=== PATIENT | female | born 1960 | race Caucasian/White ===

== ENCOUNTER 2019-01-23 11:25 | Emergency (ER) | payer SELFPAY ==
[2019-01-23 12:48] LABS: BASOPHILS % (AUTO) 1 % (0-3); EOSINOPHILS % (AUTO) 1 % (0-9); HEMATOCRIT 36 % (35-47); LYMPHOCYTES % (AUTO) 10.7 % (10-50); MEAN CORPUSCULAR HEMOGLOBIN 28.4 pg (27.0-32.0); MEAN CORPUSCULAR HGB CONC 33.2 gm/dl (32.0-36.0); MEAN CORPUSCULAR VOLUME 85 fL (81-99); MONOCYTES % (AUTO) 10.5 % (0-12)
[2019-01-23 12:55] LABS: CALCIUM 8.7 mg/dl (8.5-10.1); CARBON DIOXIDE 27.2 mEq/L (21-32); CREATININE 1.51 mg/dl (0.60-1.00)
[2019-01-23 12:57] LABS: POTASSIUM 2.9 mMol/L (3.5-5.1)
[2019-01-23] MEDS: POTASSIUM CHLORIDE 10 MEQ TER PO ONE (13:12)
[2019-01-23] MEDS: METRONIDAZOLE 250 MG TAB PO ONE (13:12)
[2019-01-23] MEDS ORDERED: POTASSIUM CHLORIDE 10 MEQ TER ONE (13:20)
[2019-01-23] MEDS ORDERED: METRONIDAZOLE 250 MG TAB ONE (13:20)
[2019-01-23] MEDS: SODIUM CHLORIDE 0.9% 1000ML 1,000 ML IV ONE (13:25)
[2019-01-23 13:29] LABS: COLOR,URINE YELLOW
[2019-01-23 13:30] LABS: APPEARANCE,URINE CLOUDY; BILIRUBIN,URINE 2+ (NEGATIVE); GLUCOSE, URINE (UA) NEGATIVE (NEGATIVE); KETONES,URINE TRACE (NEGATIVE); NITRATE,URINE NEGATIVE (NEGATIVE); OCCULT BLOOD,URINE 2+ (NEG-TRACE)
[2019-01-23 13:31] LABS: BACTERIA 3+ (< 1+); CRYSTALS NEGATIVE (0-3 AVE/HPF); ICTOTEST,URINE NEGATIVE (NEGATIVE); LEUKOCYTE ESTERASE ,URINE 2+ (NEGATIVE); UROBILINOGEN,URINE NORMAL (0.2-1.0 EU); WBC,URINE 95-100 (0-5AV/HPF)
[2019-01-23 13:58] VITALS: TEMP 99.8
[2019-01-23 14:52] LABS: APPEARANCE,URINE CLOUDY; COLOR,URINE DARK YELLOW
[2019-01-23 14:53] LABS: GLUCOSE, URINE (UA) NEGATIVE (NEGATIVE); KETONES,URINE TRACE (NEGATIVE); NITRATE,URINE NEGATIVE (NEGATIVE); OCCULT BLOOD,URINE 1+ (NEG-TRACE)
[2019-01-23 14:54] LABS: BACTERIA 3+ (< 1+); BILIRUBIN,URINE 1+ (NEGATIVE); CRYSTALS NEGATIVE (0-3 AVE/HPF); ICTOTEST,URINE NEGATIVE (NEGATIVE); LEUKOCYTE ESTERASE ,URINE 2+ (NEGATIVE); UROBILINOGEN,URINE NORMAL (0.2-1.0 EU); WBC,URINE 75-80 (0-5AV/HPF)
[2019-01-23] MEDS: CIPROFLOXACIN HCL 500 MG TAB PO ONE (15:40)
[2019-01-23] MEDS: ACETAMINOPHEN 500 MG 500 MG TAB PO ONE (15:40)
[2019-01-23] MEDS ORDERED: CIPROFLOXACIN HCL 500 MG TAB PO ONE (15:41)
[2019-01-23] MEDS ORDERED: ACETAMINOPHEN 500 MG 500 MG TAB ONE (15:44)
[2019-01-23 16:39] VITALS: RESP 16
[2019-01-23 16:41] VITALS: BP 130/74; PULSE 78; O2SAT 94
== END 2019-01-23 16:29 | disposition home or self-care (01) | DRG 690 ==
LOC: ED 11:25
DX: N39.0 Urinary tract infection, site not specified (principal); E86.0 Dehydration; N76.0 Acute vaginitis; N94.10 Unspecified dyspareunia
CPT/HCPCS: 80048; 81001; 85025; 87077; 87088; 87186; 96365; 99283; 99285; A9270-GY

== ENCOUNTER 2019-01-25 15:45 | Inpatient (IN) | payer SELFPAY ==
[2019-01-25] MEDS ORDERED: PIPERACILLIN/TAZOBACT 3.375 GM 3.375 GM in SODIUM CHLORIDE 0.9% 100 ML 100 ML IV ONE (15:59)
[2019-01-25] MEDS ORDERED: SODIUM CHLORIDE 0.9% 1000ML 1,000 ML IV ONE (15:59)
[2019-01-25] MEDS ORDERED: PIPERACILLIN/TAZOBACT 3.375 GM PDS IV ONE ×2 (16:12→22:06)
[2019-01-25] MEDS ORDERED: SODIUM CHLORIDE 0.9% FLUSH 10 ML SOL IV PRN (17:39)
[2019-01-25] MEDS ORDERED: PIPERACILLIN/TAZOBACT 3.375 GM 3.375 GM in SODIUM CHLORIDE 0.9% 100 ML 100 ML IV SCH (18:00)
[2019-01-25] MEDS: DEXTROSE/SALINE 0.45/KCL 20MEQ 1,000 ML/1,000 ML SOL IV SCH (18:30)
[2019-01-25] MEDS: BUSPIRONE HCL 5 MG TAB PO SCH (21:21)
[2019-01-25] MEDS: VANCOMYCIN HCL 125 MG CAP PO SCH (21:22)
[2019-01-25] MEDS: ALLOPURINOL 100 MG TAB PO SCH (21:22)
[2019-01-25] MEDS ORDERED: SODIUM CHLORIDE 0.9% 100 ML 100 ML IV ONE (22:06)
[2019-01-25] MEDS: PIPERACILLIN/TAZOBACT 3.375 GM 3.375 GM in SODIUM CHLORIDE 0.9% 100 ML 100 ML IV SCH (22:21)
[2019-01-25] MEDS ORDERED: ACETAMINOPHEN 500 MG 500 MG TAB PO PRN (22:32)
[2019-01-25] MEDS ORDERED: ONDANSETRON 4 MG ODT BU PRN (22:33)
[2019-01-26] MEDS: IBUPROFEN 400 MG TAB PO PRN ×2 (02:40→14:18)
[2019-01-26] MEDS ORDERED: SODIUM CHLORIDE 0.9% 100 ML 100 ML IV ONE ×5 (03:47→19:46)
[2019-01-26] MEDS ORDERED: PIPERACILLIN/TAZOBACT 3.375 GM PDS IV ONE ×5 (03:47→19:44)
[2019-01-26] MEDS: DEXTROSE/SALINE 0.45/KCL 20MEQ 1,000 ML/1,000 ML SOL IV SCH (04:35)
[2019-01-26] MEDS: PIPERACILLIN/TAZOBACT 3.375 GM 3.375 GM in SODIUM CHLORIDE 0.9% 100 ML 100 ML IV SCH ×4 (04:35→22:02)
[2019-01-26 07:25] LABS: CALCIUM 7.7 mg/dl (8.5-10.1); CREATININE 0.91 mg/dl (0.60-1.00); POTASSIUM 3.1 mMol/L (3.5-5.1)
[2019-01-26 07:28] LABS: BASOPHILS % (AUTO) 1 % (0-3); EOSINOPHILS % (AUTO) 1 % (0-9); HEMATOCRIT 32 % (35-47); HEMOGLOBIN 10.2 gm/dl (12.0-15.5); LYMPHOCYTES % (AUTO) 13.8 % (10-50); MEAN CORPUSCULAR HEMOGLOBIN 27.9 pg (27.0-32.0); MEAN CORPUSCULAR HGB CONC 32.4 gm/dl (32.0-36.0); MEAN CORPUSCULAR VOLUME 86 fL (81-99); MONOCYTES % (AUTO) 8.1 % (0-12); NEUTROPHILS % (AUTO) 76.1 % (37-80)
[2019-01-26] MEDS: BUSPIRONE HCL 5 MG TAB PO SCH ×2 (09:42→20:02)
[2019-01-26] MEDS: POTASSIUM CHLORIDE 10 MEQ TER PO SCH ×3 (09:42→15:45)
[2019-01-26] MEDS: SODIUM CHLORIDE/KCL 20MEQ 1,000 ML IV SCH ×2 (09:42→22:01)
[2019-01-26] MEDS: SERTRALINE HYDROCHLORIDE 50 MG TAB PO SCH (09:43)
[2019-01-26] MEDS: VANCOMYCIN HCL 125 MG CAP PO SCH ×4 (09:43→20:02)
[2019-01-26] MEDS: ALLOPURINOL 100 MG TAB PO SCH ×2 (09:44→20:03)
[2019-01-27] MEDS: PIPERACILLIN/TAZOBACT 3.375 GM 3.375 GM in SODIUM CHLORIDE 0.9% 100 ML 100 ML IV SCH ×2 (04:25→10:40)
[2019-01-27] MEDS: IBUPROFEN 400 MG TAB PO PRN (07:27)
[2019-01-27 07:33] VITALS: BP 146/91; PULSE 73; RESP 18; O2SAT 96
[2019-01-27 08:07] LABS: BASOPHILS % (AUTO) 1 % (0-3); EOSINOPHILS % (AUTO) 2 % (0-9); HEMATOCRIT 33 % (35-47); HEMOGLOBIN 10.7 gm/dl (12.0-15.5); MEAN CORPUSCULAR HEMOGLOBIN 27.9 pg (27.0-32.0); MEAN CORPUSCULAR HGB CONC 32.2 gm/dl (32.0-36.0); MEAN CORPUSCULAR VOLUME 87 fL (81-99); MONOCYTES % (AUTO) 8.5 % (0-12); NEUTROPHILS % (AUTO) 64.9 % (37-80)
[2019-01-27 08:33] LABS: CALCIUM 8.2 mg/dl (8.5-10.1); CARBON DIOXIDE 23.6 mEq/L (21-32); CREATININE 0.72 mg/dl (0.60-1.00); POTASSIUM 4.7 mMol/L (3.5-5.1)
[2019-01-27] MEDS: SODIUM CHLORIDE/KCL 20MEQ 1,000 ML IV SCH (10:40)
[2019-01-27] MEDS: ALLOPURINOL 100 MG TAB PO SCH (10:44)
[2019-01-27] MEDS: VANCOMYCIN HCL 125 MG CAP PO SCH (10:44)
[2019-01-27] MEDS: SERTRALINE HYDROCHLORIDE 50 MG TAB PO SCH (10:44)
[2019-01-27 10:45] VITALS: TEMP 97.9
[2019-01-27] MEDS: BUSPIRONE HCL 5 MG TAB PO SCH (11:14)
== END 2019-01-27 10:55 | disposition home or self-care (01) | DRG 868 ==
LOC: ED 15:45 → UNDOADMIN 17:19 → ACUTE CARE 17:19
PROVIDERS: ADMIT Family Medicine; ATTEND Family Medicine
DX: Z16.30 Resistance to unspecified antimicrobial drugs (principal); N30.00 Acute cystitis without hematuria; A04.72 Enterocolitis due to Clostridium difficile, not specified as recurrent; A41.9 Sepsis, unspecified organism; R42 Dizziness and giddiness; A49.8 Other bacterial infections of unspecified site; R19.7 Diarrhea, unspecified; R41.82 Altered mental status, unspecified; I10 Essential (primary) hypertension; E87.6 Hypokalemia
CPT/HCPCS: 36415; 80048; 85025; 87040; 96365; 96366; 99070; 99283; 99291; J2543; A9270-GY